=== PATIENT | female | born 1995 | race Caucasian/White ===

== ENCOUNTER 2021-08-26 11:47 | Emergency (ER) | payer BC ==
[~2021-08-26] VITALS: Ht 157.5 cm; Wt 65.8 kg
[~2021-08-26 11:47] MED LIST: FLEXERIL PO; IBUPROFEN 800800 M1 PO; NOHOMEMEDICATIONS; ZYRTEC10 M2
[2021-08-26] MEDS ORDERED: SERTRALINE HCL100 MG PO (12:15)
[2021-08-26 13:42] LABS: URINE BILIRUBIN NEGATIVE (Negative); URINE BLOOD TRACE (Negative); URINE CLARITY SL CLOUDY; URINE COLOR YELLOW; URINE GLUCOSE-RANDOM NEGATIVE (Negative); URINE KETONES NEGATIVE (Negative); URINE NITRITE-REFLEX NEGATIVE (Negative); URINE PROTEIN NEGATIVE (Negative); URINE UROBILINOGEN 0.2 E.U./dl (0.2-1.0)
[2021-08-26 13:45] LABS: URINE LEUKOCYTES-REFLEX 3+ (Negative)
[2021-08-26 13:53] LABS: SQUAMOUS >10 Many /LPF (0-3)
[2021-08-26 13:54] LABS: CASTS None Seen /LPF (None Seen); CRYSTALS None Seen /LPF (None Seen); URINE RBC 0-2 Rare /HPF (0-2)
[2021-08-26 14:30] LABS: ABSOLUTE EOSINOPHILS 0.3 thou/uL (0.0-0.7); ABSOLUTE LYMPHOCYTES 1.9 thou/uL (0.8-5.3); ABSOLUTE MONOCYTES 0.4 thou/uL (0.0-1.2); ABSOLUTE NEUTROPHILS 8.4 thou/uL (1.6-8.1); BASOPHILS 0.2 %; EOSINOPHILS 2.3 %; HEMATOCRIT 38.4 % (37.0-47.0); HEMOGLOBIN 12.7 gm/dL (12.0-15.0); LYMPHOCYTES 17.6 %; MCH 29.2 pg (26.0-34.0); MCHC 33.1 g/dL (28.0-37.0); MCV 88.1 fL (80.0-100.0); MONOCYTES 3.2 %; MPV 8.4 fl. (7.2-11.1); NUCLEATED RBCS 0 /100WBC; PLATELET COUNT* 270 thou/uL (150-400); POLYS 76.7 %; RBC 4.36 mil/uL (4.20-5.00); RDW-CV 13.5 % (10.5-14.5); WBC 10.9 thou/uL (4.0-11.0)
[2021-08-26 14:39] LABS: CALCIUM 8.3 mg/dL (8.5-10.1); CREATININE 0.7 mg/dL (0.6-1.3); POTASSIUM 3.6 mmol/L (3.5-5.1)
[2021-08-26 14:43] LABS: ALBUMIN 3.6 g/dL (3.4-5.0); TOTAL BILIRUBIN 0.4 mg/dL (<0.1-1.0); TOTAL PROTEIN 6.6 g/dL (6.4-8.2)
[2021-08-26] MEDS ORDERED: CEPHALEXIN500 MG PO (16:47)
[2021-08-26] MEDS ORDERED: PYRIDIUM200 M2 PO (16:47)
[2021-08-26 17:12] VITALS: BP 120/73
== END 2021-08-26 17:15 | disposition home or self-care (01) ==
LOC: M.ERS 11:47
PROVIDERS: Emergency Medicine Emergency Medical Services
DX: N39.0 Urinary tract infection, site not specified (principal); R11.2 Nausea with vomiting, unspecified; R19.5 Other fecal abnormalities; F17.290 Nicotine dependence, other tobacco product, uncomplicated; Z98.890 Other specified postprocedural states; Z79.899 Other long term (current) drug therapy

== ENCOUNTER → 2021-10-06 | Outpatient (CLI) | payer BC ==
[~2021-10-06] MED LIST changes: +CEPHALEXIN500 MG PO; +PYRIDIUM200 M2 PO; +SERTRALINE HCL100 MG PO
== END ==
LOC: M.RAD 09-20 10:00
PROVIDERS: ATTEND Internal Medicine Gastroenterology
DX: R19.4 Change in bowel habit (principal)